=== PATIENT | female | born 1970 | race Caucasian/White ===

== ENCOUNTER 2020-05-19 01:07 | Day surgery (SDC) | payer BC, SELFPAY ==
[2020-05-12 15:10] VITALS: BMI 23.8
[2020-05-19 12:08] VITALS: BP 126/73; PULSE 100; RESP 19; TEMP 36.6; O2SAT 100; BMI 22.5
[2020-05-19] MEDS: LACTATED RINGERS 1,000 ML 150 ML IV CONT (12:15)
--- NOTE | 2020-05-19 12:28 | WPDANESEPPF ---
Anes - Initial Pre Proc Eval Procedure: Operation Date: 05/19/20 13:15 Proposed Procedures p Esophagogastroduodenoscopy And Screening Colonoscopy - Roberto Amaya MD Date/Time: 05/19/20 12:28 Surgeon: Roberto Amaya MD Pre Op Diagnosis: GERD, Dysphagia, Neoplasm Screening Patient Data Age: 49 Gender: F Height: 5 ft 2 in Weight: 55.8 kg Last Vital Signs Temp 97.9 F 05/19/20 12:08 Pulse 100 05/19/20 12:08 Resp 19 05/19/20 12:08 BP 126/73 05/19/20 12:08 Pulse Ox 100 05/19/20 12:08 Allergies Allergy/AdvReac Type Severity Reaction Status Date / Time Sulfa (Sulfonamide Allergy Severe Hives Verified 05/19/20 12:07 Antibiotics) codeine AdvReac Severe Migraine Verified 05/19/20 12:07 Home Medications Medication Instructions Recorded Confirmed Type albuterol sulfate 90 mcg/actuation 1 inhalation INHALATION Q4H PRN 03/10/19 05/19/20 History aerosol inhaler azelastine 137 mcg (0.1 %) nasal 137 mcg NASAL Q12H PRN 03/10/19 05/19/20 History spray aerosol topiramate 50 mg tablet 50 mg PO DAILY 04/25/20 05/19/20 History pantoprazole 40 mg tablet,delayed 40 mg PO QAM #30 tablet 04/26/20 05/19/20 Rx release benazepril 10 mg PO DAILY 05/15/20 05/19/20 History hydrochlorothiazide 12.5 mg PO DAILY 05/15/20 05/19/20 History metoprolol succinate 50 mg PO DAILY 05/15/20 05/19/20 History Patient hx anesthesia problems: none Family hx anesthesia problems: none PMFSH Past Medical History Medical History Anemia Asthma Hypertension Kidney stone ureteral stent ( right side) 03/12/19 Migraines Ureteral stone Surgical History Surgical History H/O sinus surgery History of removal of ovarian cyst Hx of cholecystectomy Hx of tonsillectomy S/P ureteral stent placement Family History Family History Father Family history of coronary artery disease No family history of hypertension Hypertension Family history of cardiovascular disease Malignant neoplasm of prostate Family history of malignant neoplasm of urinary bladder Mother Hypertension Grandparent Carcinoma of colon Other Family history of lung cancer Social History Social History Smoking status: Never smoker Second hand tobacco smoke exposure: No Alcohol intake: current Alcohol use details: WINE Substance use: never Substance use type: does not use Living arrangements: with family Additional occupation/education comments: Remote Spiritual care concerns: No Agree to blood products: Yes Anes - Eval Final PreProcedure Day of Procedure 05/19/20 12:28 Patient weight: normal Heart: regular rate and rhythm Lungs: clear to auscultation Airway: Mallampati scale class II Neurological: alert and oriented Last oral intake: >/= 8 hours ASA classification: II Emergent: no Anesthetic plan: proceed Anesthesia type and monitoring: general GIVS and standard monitoring Informed Consent: The patient's anesthetic plan and its attendant risks and benefits were discussed with the patient/family/POA. Questions were solicited and answers provided to the satisfaction of the patient/family/POA.
--- NOTE | 2020-05-19 13:22 | WPDHPUPDATE1 ---
History and Physical Update Update Date/Time: 05/19/20 13:22 History and Physical has been reviewed, including an updated exam of the patient. There are NO changes in the patient's condition. Risks, benefits, and alternatives have been discussed and questions answered. Patient agrees to proceed with procedure.
--- NOTE | 2020-05-19 13:54 | SUR.OPER ---
EGD START 1325, END 1332 COLONOSCOPY START 1338, END 1353
[2020-05-19 13:56] VITALS: BP 108/68; PULSE 79; RESP 25; O2SAT 99
[2020-05-19 14:06] VITALS: BP 109/72; PULSE 76; RESP 20; O2SAT 100
[2020-05-19 14:16] VITALS: BP 114/78; PULSE 78; RESP 23; O2SAT 99
== END 2020-05-19 14:33 | disposition home or self-care (01) ==
PROVIDERS: PCP Family Medicine; Visit Provider Internal Medicine Gastroenterology
PROC: 0DJ08ZZ Inspection of Upper Intestinal Tract, Via Natural or Artificial Opening Endoscopic (ICD-10-PCS; CPT 43235; principal; 2020-05-19 13:15)
DX: Z12.11 Encounter for screening for malignant neoplasm of colon (principal); K21.9 Gastro-esophageal reflux disease without esophagitis; R13.10 Dysphagia, unspecified; K30 Functional dyspepsia; K90.0 Celiac disease; K29.50 Unspecified chronic gastritis without bleeding; K64.8 Other hemorrhoids; Z79.51 Long term (current) use of inhaled steroids; D64.9 Anemia, unspecified; I10 Essential (primary) hypertension; J45.909 Unspecified asthma, uncomplicated; Z87.442 Personal history of urinary calculi
CPT/HCPCS: 43239; 45378; 88305; J2001; J2704; J7120

== ENCOUNTER 2020-09-27 09:20 | Outpatient (CLI) | payer BC, SELFPAY ==
--- NOTE | ~2020-09-27 | XR_ITS ---
EXAMINATION: XR abdomen/kub 1V DATE: 09/27/2020 09:39 INDICATION: Right ureteral stone. TECHNIQUE: A supine view of the abdomen on 2 radiographs was obtained. COMPARISON: Abdomen radiograph 04/13/2019, CT abdomen and pelvis 03/11/2019 FINDINGS: There are no dilated loops of bowel. Surgical clips in the right upper quadrant are likely from cholecystectomy. There is an intrauterine device in expected position. There is a 2 mm stone in left kidney. IMPRESSION: 1. 2 mm stone in left kidney. Reviewed, dictated and finalized at location A.
== END 2020-09-27 09:21 | disposition home or self-care (01) ==
LOC: ANHIMG 09:24
PROVIDERS: PCP Family Medicine; Visit Provider Urology
DX: N20.0 Calculus of kidney (principal)
CPT/HCPCS: 74018

== ENCOUNTER 2021-08-06 08:50 | Outpatient (CLI) | payer BC, SELFPAY ==
--- NOTE | ~2021-08-06 | MM_ITS ---
EXAMINATION: MM screening bailey BI w toro HISTORY: Screening mammogram TECHNIQUE: Craniocaudal and mediolateral oblique 3-D tomosynthesis images were obtained and synthetic 2-D images were generated. CAD analysis was submitted and interpreted. COMPARISON: 07/25/2017, 12/25/2013, 12/24/2012, 07/04/2011 bilateral screening mammogram examinations 12/21/2012 diagnostic left mammogram and left breast ultrasound BREAST PARENCHYMAL COMPOSITION: There are scattered areas of fibroglandular density. FINDINGS: There are 2 apparently new circumscribed approximately 4.7 mm contiguous nodules in the rig ht posterior axillary tail, not evident on previous mammograms. Diagnostic right mammogram and right breast ultrasound examination are recommended. Otherwise there is no evidence of suspicious mass, calcification, or architectural distortion to sugg est malignancy in either breast. There has been no is no other suspicious interval change. IMPRESSION: 1. 2 apparently new approximately 4.7 mm circumscribed masses in the posterior right axillary tail ar ea 2. Diagnostic right mammogram and right breast ultrasound examination are recommended BI-RADS Category 0: Incomplete: Needs additional imaging evaluation. Reviewed, dictated and finalized at location A. IMPRESSION: 1. 2 apparently new approximately 4.7 mm circumscribed masses in the posterior right axillary tail area 2. Diagnostic right mammogram and right breast ultrasound examination are recom mended BI-RADS Category 0: Incomplete: Needs additional imaging evaluation.
== END 2021-08-06 08:51 | disposition home or self-care (01) ==
LOC: ANHIMG 08:51
PROVIDERS: PCP Nurse Practitioner Family; Visit Provider Nurse Practitioner Family
DX: Z12.31 Encounter for screening mammogram for malignant neoplasm of breast (principal)
CPT/HCPCS: 77063; 77067

== ENCOUNTER 2021-08-10 12:16 | Outpatient (CLI) | payer BC, SELFPAY ==
--- NOTE | ~2021-08-10 | MMUS_ITS ---
EXAMINATION: MM diag bailey implant RT w toro, US breast RT limited HISTORY: 2 apparently new approximately 4.7 mm circumscribed masses in the posterior right axillary t ail area reported on 08/06/2021 screening mammogram TECHNIQUE: Additional 3-D tomosynthesis images of the right breast were performed and synthetic 2-D i mages were generated. Rotated lateral craniocaudal view. CAD analysis was submitted and interpreted. High resolution targeted right axillary tail breast ultrasound was performed by the technologist with subsequent scanning by Dr. Pappas as well. COMPARISON: 08/06/2021 bilateral screening mammogram Serial bilateral mammogram examinations dating back to 07/04/2011 FINDINGS: MAMMOGRAPHIC FINDINGS: 2 contiguous circumscribed oval approximately 4.7 mm opacities are again noted in the right axillary tail area. These are kidney shaped, suggestive of lymph nodes. Partially calcified fibroadenoma is noted in the upper outer quadrant. ULTRASOUND: No suspicious solid lesion or shadowing is detected. 11:00 8 cm from nipple: Shadowing from the calcified fibroadenoma is noted. 10:00 9 cm from nipple: 4.5 x 2.4 x 3.7 mm cyst. IMPRESSION: 1. Probable benign findings, right axillary tail 2. 6 month diagnostic right mammogram follow-up is recommended, with ultrasound if required BI-RADS category 3, probably benign findings. Reviewed, dictated and finalized at location A. IMPRESSION: 1. Probable benign findings, right axillary tail 2. 6 month diagnostic right mammogram follow-up is recommended, with ultrasound if required BI-RADS category 3, probably benign findings.
== END 2021-08-10 12:17 | disposition home or self-care (01) ==
PROVIDERS: PCP Nurse Practitioner Family; Visit Provider Nurse Practitioner Family
DX: R92.8 Other abnormal and inconclusive findings on diagnostic imaging of breast (principal)
CPT/HCPCS: 76642; 77061; 77065; G0279

== ENCOUNTER 2021-11-09 19:54 | Emergency (ER) | payer BC, SELFPAY ==
--- NOTE | ~2021-11-09 | XR_ITS ---
EXAMINATION: XR chest 2V DATE: 11/09/2021 21:03 INDICATION: Dizziness. Left-sided chest tightness and left shoulder pain. TECHNIQUE: PA and lateral views of the chest were obtained. COMPARISON: None FINDINGS: The lungs are clear with no focal airspace opacities, pulmonary edema, pleural effusion or pneumothor ax. The cardiomediastinal silhouette is normal. Visualized bones and soft tissues are unremarkable. P ost cystectomy clips in right upper quadrant. IMPRESSION: 1. No acute cardiopulmonary disease. Reviewed, dictated and finalized at location A.
--- NOTE | 2021-11-09 19:57 | ECG_ITS ---
Measurements Intervals [place] Rate: 71 P: 62 WA: 152 QRS: 46 QRSD: 84 T: 15 QT: 359 QTc: 391 Interpretive Statements SINUS RHYTHM WITHIN NORMAL LIMITS NO PREVIOUS ECG AVAILABLE FOR COMPARISON Electronically Signed On 11-10-2021 7:19:25 CDT by Feliz Childress M.D.
[2021-11-09 20:03] VITALS: BP 139/76; PULSE 76; RESP 16; TEMP 36.4; O2SAT 100
[2021-11-09 20:44] LABS: Basophils Percent Auto 0.1 % (0.2-1.2); Hemoglobin 12.9 g/dL (12.0-15.0); Immature Granulocyte Absolute 0.07 K/mm3 (0.00-0.031); Immature Granulocyte Percent A 0.5 % (0-0.5); Lymphocytes Absolute Auto 1.48 K/mm3 (0.9-3.2); Lymphocytes Percent Auto 10.7 % (18.3-44.2); Mean Corpuscular HGB Conc 32.3 g/dl (32-36); Mean Corpuscular Hemoglobin 29.1 pg (26-34); Mean Corpuscular Volume 90.1 fl (80-100); Mean Platelet Volume 10.2 fl (7.4-10.4); Monocytes Absolute Auto 0.6 K/mm3 (0.1-0.6); Monocytes Percent Auto 4.6 % (2.6-8.5); Neutrophils Absolute Auto 11.6 K/mm3 (1.3-6.7); Neutrophils Percent Auto 84.1 % (45.5-73.1); Platelet Count Result 498 k/mm3 (150-375); Red Blood Count 4.44 M/mm3 (4.2-5.4); Red Cell Distribution Width 13.2 % (11.5-14.5); White Blood Count 13.8 K/mm3 (4.5-10.0)
[2021-11-09 20:46] LABS: Prothrombin Time 12.5 Seconds (11.1-14.7)
[2021-11-09 20:47] LABS: Alanine Aminotransferase 23 U/L (6-35); Albumin Level 4.7 g/dL (3.5-5.1); Alkaline Phosphatase 79 U/L (38-126); Anion Gap 13 mmol/L (8-16); Aspartate Amino Transferase 29 U/L (14-36); Bilirubin,Total 0.2 mg/dL (0.2-1.3); Blood Urea Nitrogen 18 mg/dL (7-17); Calcium 9.5 mg/dL (8.4-10.2); Carbon Dioxide 22 mmol/L (22-30); Chloride 105 mmol/L (98-107); Estimated CRCL calculation 48 ml/min; Estimated Glomerular Filt Rate 59; Glucose 152 mg/dL (65-110); Lipase 133 U/L (23-300); Partial Thromboplastin Time 25.8 SECONDS (22.3-36.8); Potassium 3.7 mmol/L (3.4-5.0); Sodium 140 mmol/L (137-145)
[2021-11-09 20:55] LABS: Troponin I < 0.012 ng/mL (0.000-0.034)
[2021-11-09 21:04] LABS: Appearance Urine Clear (Clear); Bilirubin Urine Negative (Negative); Glucose Urine UA Negative (Negative); Ketones Urine Negative (Negative); Leukocyte Esterase Ur Negative LEU/UL (Negative); Nitrate Urine Negative (Negative); Protein Urine Negative (Negative); Urobilinogen Urine 0.2 mg/dL (<2.0)
[2021-11-09 21:05] LABS: Add Urine Microscopic? YES; Blood Urine Trace-Intact (Negative); Color Urine Light Yellow (Yellow)
[2021-11-09 21:06] VITALS: BP 134/78; PULSE 67; RESP 17; TEMP 36.8; O2SAT 100
[2021-11-09 21:10] LABS: RBC Urine 0-2 /hpf (0-2); WBC Urine 0-3 /hpf
[2021-11-09] MEDS: ASPIRIN 81 MG CHEWABLE TABLET 324 MG PO (21:12)
[2021-11-09 22:00] VITALS: BP 114/73; PULSE 67; RESP 15; O2SAT 99
[2021-11-09 22:15] VITALS: BP 112/76; PULSE 67; RESP 17; O2SAT 99
[2021-11-09 22:30] VITALS: BP 111/70; PULSE 69; RESP 14; O2SAT 98
[2021-11-09 22:45] VITALS: BP 110/75; PULSE 73; RESP 17; O2SAT 98
[2021-11-09 23:43] LABS: Troponin I < 0.012 ng/mL (0.000-0.034)
--- NOTE | 2021-11-10 00:09 | ED.GENADULT ---
HPI - General Adult General Chief complaint: Chest Pain Stated complaint: chest pain, dizziness Time Seen by Provider: 11/09/21 21:37 History of Present Illness HPI narrative: This is a 50-year-old female presenting the ED with a frontal headache. Patient has been having sinus pain for the last 2 weeks. It is consistent with a frontal headache and pressure behind her eyes. She was seen by her primary care physician who recently prescribed her antibiotics. She has not been taking decongestants and has just been using a Neti pot. The patient is coming in today because she felt a twingy chest pain at approximately noon. It is nonradiating. 2-3 intensity. Comes and goes. She has never experienced this before there were no exacerbating or alleviating symptoms. It is not associated with exertion, diaphoresis, vomiting. Related Data Home Medications Medication Instructions Recorded Confirmed albuterol sulfate 90 mcg/actuation 1 inhalation inhalation Q4H PRN 03/10/19 05/19/20 aerosol inhaler (ProAir HFA) Allergy Symptoms topiramate 50 mg tablet (Topamax) 50 mg PO DAILY 04/25/20 05/19/20 metoprolol succinate 50 mg 50 mg PO DAILY 05/15/20 05/19/20 tablet,extended release 24 hr amoxicillin 875 mg-potassium tablet 11/09/21 11/09/21 clavulanate 125 mg tablet fluticasone propionate 50 intranasal 11/09/21 mcg/actuation nasal spray,suspension prednisone 20 mg tablet mg 11/09/21 Allergies Allergy/AdvReac Type Severity Reaction Status Date / Time Sulfa (Sulfonamide Allergy Severe Hives Verified 11/09/21 21:08 Antibiotics) codeine AdvReac Severe Migraine Verified 11/09/21 21:08 Review of Systems Review of Systems: CONSTITUTIONAL: Denies night sweats. EYES: No eye pain ENT: Denies rhinorrhea CARDIOVASCULAR: Denies palpitations RESPIRATORY: Denies hemoptysis GASTROINTESTINAL: Denies hematemesis GENITOURINARY: Denies hematuria. SKIN: Denies rash MUSCULOSKELETAL: Denies myalgia. NEUROLOGIC: Denies weakness. PSYCHIATRIC: Denies delusions PMFSH Past Medical History Medical History Abnormal virtual colonoscope internal hemorrhoids Anemia Asthma Hypertension Kidney stone ureteral stent ( right side) 03/12/19 Migraines Ureteral stone Surgical History Surgical History H/O sinus surgery History of removal of ovarian cyst Hx of cholecystectomy Hx of tonsillectomy S/P ureteral stent placement Family History Family History Father Family history of coronary artery disease No family history of hypertension Hypertension Family history of cardiovascular disease Malignant neoplasm of prostate Family history of malignant neoplasm of urinary bladder Mother Hypertension Grandparent Carcinoma of colon Other Family history of lung cancer Social History Social History Smoking status: Never smoker Second hand tobacco smoke exposure: No Alcohol intake: current Alcohol use details: WINE Substance use: never Substance use type: does not use Additional occupation/education comments: Remote Spiritual care concerns: No Agree to blood products: Yes Exam Narrative: APPEARANCE: No apparent distress. Head atraumatic. Tenderness to palpation over the frontal sinuses. EYES: PERRLA/EOMI, NOSE: Normal no drainage NECK: Supple, Trachea midline RESPIRATORY: CTAB, No increased work of breathing. CARDIOVASCULAR: S1S2 appreciated ABDOMINAL: Soft, nontender, nondistended, MUSCULOSKELETAl: No obvious deformities NEURO: Alert. Moving 4/4 extremities SKIN:: Warm, dry. Normal color PSYCHIATRIC: Normal affect Course Vital Signs Vital signs: Vital Signs Temperature 97.6 F 11/09/21 20:03 Pulse Rate 76 11/09/21 20:03 Respiratory Rate 16 11/09/21 20:03 Bloo
[2021-11-10 00:49] VITALS: BP 107/73; PULSE 85; RESP 15; O2SAT 100
== END 2021-11-10 00:51 | disposition home or self-care (01) ==
PROVIDERS: Emergency Provider Emergency Medicine; PCP Nurse Practitioner Family
DX: J32.9 Chronic sinusitis, unspecified (principal); R07.9 Chest pain, unspecified; I10 Essential (primary) hypertension; J45.909 Unspecified asthma, uncomplicated; Z87.442 Personal history of urinary calculi; Z86.2 Personal history of diseases of the blood and blood-forming organs and certain disorders involving the immune mechanism; Z96.0 Presence of urogenital implants
CPT/HCPCS: 36415; 71046; 80053; 81001; 81025; 83690; 84484; 85025; 85610; 85730; 93005; 99284; A9270

== ENCOUNTER 2022-01-29 13:46 | Outpatient (CLI) | payer BC, SELFPAY ==
--- NOTE | ~2022-01-29 | MMUS_ITS ---
EXAMINATION: MM diagnostic bailey RT w toro, US breast RT limited HISTORY: Six-month follow-up for probably benign right breast masses TECHNIQUE: Craniocaudal, mediolateral, and mediolateral oblique 3-D tomosynthesis images of the breas ts were performed and synthetic 2-D images were generated. CAD analysis was submitted and interpreted . High resolution limited right breast ultrasound was performed. COMPARISON: 08/10/2021, 08/06/2021, 07/28/2017, 02/02/2014, 12/14/2012 BREAST PARENCHYMAL COMPOSITION: There are scattered areas of fibroglandular density. FINDINGS: MAMMOGRAPHIC FINDINGS: There is a stable mass in the far posterior third of the outer breast near the region of the axilla w hich appears to reflect a small mass with a central fatty component, most consistent with a lymph nod e. There has been no suspicious interval change. ULTRASOUND: There is no evidence of suspicious solid or cystic mass in the vicinity of the mammographic finding i n question. IMPRESSION: 1. Right breast mass with mammographic features most consistent with a lymph node. 2. Recommend routine screening mammography, due in six months. BI-RADS Category 2: Benign finding(s). Reviewed, dictated and finalized at location A. IMPRESSION: 1. Right breast mass with mammographic features most consistent with a lymph no de. 2. Recommend routine screening mammography, due in six months. BI-RADS Category 2: Benign finding(s).
== END 2022-01-29 13:47 | disposition home or self-care (01) ==
PROVIDERS: PCP Nurse Practitioner Family; Visit Provider Nurse Practitioner Family
DX: R92.8 Other abnormal and inconclusive findings on diagnostic imaging of breast (principal)
CPT/HCPCS: 76642; 77061; 77065; G0279

== ENCOUNTER 2022-12-31 07:19 | Outpatient (CLI) | payer BC, SELFPAY ==
--- NOTE | ~2022-12-31 | MM_ITS ---
EXAMINATION: MM screening bailey BI w toro HISTORY: Screening mammogram TECHNIQUE: Craniocaudal and mediolateral oblique 3-D tomosynthesis images were obtained and synthetic 2-D images were generated. CAD analysis was submitted and interpreted. COMPARISON: 01/29/2022 diagnostic right mammogram and limited right breast ultrasound 08/10/2021 diagnostic right mammogram and limited right breast ultrasound 08/06/2021 and 07/28/2017 bilateral screening mammogram examinations BREAST PARENCHYMAL COMPOSITION: There are scattered areas of fibroglandular density. FINDINGS: There is no evidence of suspicious mass, calcification, or architectural distortion to sugg est malignancy in either breast. There has been no suspicious interval change. IMPRESSION: 1. No mammographic evidence of malignancy. 2. Recommend routine screening mammography in one year. BI-RADS Category 1: Negative Reviewed, dictated and finalized at location A.
== END 2022-12-31 07:20 | disposition home or self-care (01) ==
PROVIDERS: PCP Nurse Practitioner Family; Visit Provider Nurse Practitioner Family
DX: Z12.31 Encounter for screening mammogram for malignant neoplasm of breast (principal); R92.8 Other abnormal and inconclusive findings on diagnostic imaging of breast
CPT/HCPCS: 77063; 77067

== ENCOUNTER 2024-04-23 09:59 | Outpatient (CLI) | payer BC, SELFPAY ==
--- NOTE | ~2024-04-23 | MM_ITS ---
EXAMINATION: MM screening bailey BI w toro HISTORY: Screening TECHNIQUE: Craniocaudal and mediolateral oblique 3-D tomosynthesis images were obtained and synthetic 2-D images were generated. CAD analysis was submitted and interpreted. COMPARISON: Comparison to multiple prior studies sequentially, with oldest reviewed study dated 07/28. BREAST PARENCHYMAL COMPOSITION: Not dense: There are scattered areas of fibroglandular density. FINDINGS: There is no evidence of suspicious mass, calcification, or architectural distortion to sugg est malignancy in either breast. There has been no suspicious interval change. IMPRESSION: 1. No mammographic evidence of malignancy. 2. Recommend routine screening mammography in one year. BI-RADS Category 1: Negative Reviewed, dictated and finalized at location A. TERIA MONITOR
--- OUTSIDE RECORDS SUMMARY | 2024-04-29 06:14 | XMS_ITS | Referral Summary ---
Author Organization [facility] Address [address] [place] [address] Care Team Providers Care Locator Specialist Name Role Phone Pippa Sampson MD Primary Care Provider [phone] Source Comments [facility],non-owned Affiliates and Associated Physician Practices is amultiple site organization consisting of ambulatory clinics and hospital sitesin [place], [place], [place] and [place]. This disclosure is being madepursuant to the Care Everywhere program and may not contain all information available regarding this patient. Last updated 17.[facility] Social History Tobacco Use Types Packs/Day Years Used Date Smoking Tobacco: Never Assessed Sex and Gender Information Value Date Recorded Sex Assigned at Not on file Gender Identity Not on file Sexual Orientation Not on file Plan of Treatment Not on file Care Teams Locator Specialist Relationship Specialty Start Date End Date Pippa Sampson MD [address] [place] [id number] PCP - General 04/22/19
--- OUTSIDE RECORDS SUMMARY | 2024-04-29 06:14 | XMS_ITS | Clinical Summary ---
Author Organization [facility] Address [address] [place] [address]. [place], [place] [address] [place] [address] Care Team Providers Care Cytopathology Technologist Name Role Phone ShipmanMorenita Ryley POSADAS Primary Care Provider +1- [phone] Allergies Active Allergy Reactions Criticality Noted Date Comments Codeine Headache 07/05/2021 Sulfa Antibiotics Rash Low 04/26/2021 Medications azelastine (ASTELIN) 0.1 % nasal sprayIndications:N fred polyps 1-2 sprays per nostril, once or twice daily. 30 mL 2 3 Active SYMBICORT 80-4.5 MCG/ACT inhalerIndications :Dysfunction of both eustachian tubes,Seasonal allergies INHALE 2 PUFFS BY MOUTH EVERY 12 HOURS Strength: 80-4.5 MCG/ACT 10.2 g 3 3 Active albuterol sulfate HFA 108 (90 Base) MCG/ACT inhalerIndications :Seasonal allergies Inhale 2 puffs into the lungs every 6 (six) hours as needed for Wheezing or Shortness of breath. 18 g 3 Active Andover-3 Fatty Acids (FISH OIL) 1200 MG CapIndications:Hig h triglycerides,Hype rtriglyceridemia Take 1,200 mg by mouth daily. 90 capsule 3 Active SUMAtriptan (IMITREX) 50 MG tabletIndications: Migraine with aura and without status migrainosus, not intractable Take 1 tablet (50 mg total) by mouth 2 (two) times daily as needed for Migraine. Max of 4 tablets (200 mg) in 24 hours. 30 tablet 1 3 Active atorvastatin (LIPITOR) 20 MG tabletIndications: Hypertriglyceridem ia,Dyslipidemia Take 1 tablet (20 mg total) by mouth nightly at bedtime. 90 tablet 3 4 Active fluticasone propionate (FLONASE) 50 MCG/ACT nasal spray Active levocetirizine (XYZAL) 5 MG tabletIndications: Nasal polyps TAKE 1 TABLET(5 MG) BY MOUTH DAILY 90 tablet 1 4 Active topiramate (TOPAMAX) 50 MG TabIndications:Gene verónica with aura and without status migrainosus, not intractable Take 1 tablet (50 mg total) by mouth daily. 90 tablet 3 4 Active metoprolol succinate ER (TOPROL-XL) 50 MG 24 hr tabletIndications: Essential hypertension Take 1 tablet (50 mg total) by mouth daily. 90 tablet 3 4 Active hydroCHLOROthiazid e (MICROZIDE) 12.5 MG capsuleIndications :Essential hypertension Take 1 capsule (12.5 mg total) by mouth daily. 90 capsule 1 4 Active benazepril (LOTENSIN) 10 MG tabletIndications: Essential hypertension Take 1 tablet (10 mg total) by mouth daily. 90 tablet 1 4 Active montelukast (SINGULAIR) 10 MG tabletIndications: Acute recurrent frontal sinusitis,Nasal polyps,Seasonal allergies Take 1 tablet (10 mg total) by mouth nightly at bedtime. 90 tablet 4 Active fenofibrate 160 MG tabletIndications: High triglycerides Take 1 tablet (160 mg total) by mouth daily. 90 tablet 4 Active Active Problems Problem Noted Date Diagnosed Date Lipoma of torso 08/08/2023 Hypertriglyceridemia 03/10/2023 Dyslipidemia 11/18/2022 Essential hypertension 10/24/2021 Heartburn 10/24/2021 Acute recurrent frontal sinusitis 05/07/2021 Resolved Problems Problem Noted Date Diagnosed Date Resolved Date Melanoma ([facility]) 12/09/2022 1 05/11/2022 Encounters Date Type Department Care Team Description 04/23/2024 Scan VeliQ SRVCS Scanned, Doc [facility] Mammogram (SCAN) 03/15/2024 Scan HEALTH [employer] SRVCS Scanned, Doc Med Group 02/11/2024 Scan MG HEALTH INFO SRVCS Scanned, Doc Med Group from Last 3 Months Immunizations Name Administration Dates Next Due Hepatitis A (Havrix 1440 [address].U) 08/06/2018,2017 Influenza (Generic) 02/28/2017 Influenza Adult (Generic) 01/08/2023,,12/28/2020, 020,01/06/2019,01/10/2018 [employer] ([employer]) COVID-19 AD26 VACCINE 0.5 ML IM SUSP 06/15/2020 MMR (MMRII) 08/06/2018 PFIZER COVID-19 (LOWRY CAP), MRNA, LNP-S, PF, 30 MCG/0.3 ML ROCK-SUCROSE, IM 08/16/2021 PFIZER COVID-19 (ORIGINAL FORMULATION, PURPLE CAP) mRNA, LNP-S, PF, 30 MCG/0.3 ML DOSE 02/25/2021 Shingrix 01/29/2023,2022 Tdap (Generic) 07/15/2017 Family History Medical History Relation Comments Cancer Father Heart Disease Father Hypertension Father bladder cancer Father prostate cancer Father Hypertension Mother Relation Status Comments Father Alive Mother Alive Social History Tobacco Use Types Packs/Day Years Used Date Smoking Tobacco: Never Smokeless Tobacco: Never Tobacco Cessation:Counseling Given: Not Answered Comments:non smoker Alcohol Use Standard Drinks/Week Comments Not Currently 0 (1 standard drink = 0.6 oz pur e alcohol) 1-3 monthly PHQ-2 Answer Date Recorded Patient Health Questionnaire-2 Score 0 04/17/2023 Comments No Sex and Gender Information Value Date Recorded Sex Assigned at Not on file Legal Sex Female 9:56 AM MAINTAINABILITY ENGINEER Gender Identity Not on file Sexual Orientation Not on file Last Filed Vital Signs Vital Sign Reading Time Taken Comments Blood Pressure 117/68 11/10/2023 7:58 AM CDT Pulse 69 11/10/2023 7:58 AM CDT Temperature 37.1 ??C (98.8 ??F) 11/10/2023 7:58 AM CD T Respiratory Rate 18 11/10/2023 7:58 AM CDT Oxygen Saturation 99% 11/10/2023 7:58 AM CDT Inhaled Oxygen Concentration - - Weight 68.9 kg (152 lb) 11/10/2023 7:58 AM CDT Height 157.5 cm (5' 2 ) 11/10/2023 7:58 AM CDT Body Mass Index 27.8 11/10/2023 7:58 AM CDT Plan of Treatment Upcoming Encounters Date Type Department Care Team (Late st Contact Info) Description 05/10/2024 7:40 AM MAINTAINABILITY ENGINEER Office Visit [facility] Family & Internal Medicine [facility] [address] [place] [address] Morenita Shipman, PROPERTY MANAGEMENT ACCOUNTANT [address] [facility] [address] [place] [address] Health Maintenance Due Date Last Done Comments Cervical Cancer Screening Pap Smear (Age 30 to 64) Every 3 Years 1971 Hepatitis C 11/18/1989 Hepatitis B Vaccines (1 of 3 - 19+ 3-dose series) 11/18/1990 COVID-19 Vaccine ( season) 2023 12/31/2021, 08/16/2021, 02/25/2021, Additional history exists Influenza Adult (#1) 2024 01/08/2023, 12/31/2021, 12/28/2020, Additional history exists PHQ-2 (Physician Kiana) 04/17/2024 04/17/2023 Annual Physical 11/09/2024 11/10/2023, 11/05, 04/26/2021 Mammogram Screening 04/23/2025 04/23/2024, 12/31/2022, 12/31/2022, Additional history exists DTaP, Tdap and Td Vaccines (2 - Td or Tdap) 07/16/2027 07/15/2017 Cervical Cancer Screening Pap with HPV Testing (Age 30 to 64) Every 5 Years 01/08/2028 01/07/2023 Cervical Cancer Screening with HPV 01/08/2028 Colorectal Cancer Screening Colonoscopy (10 Years) 05/19/2030 05/19/2020 Zoster Vaccines Completed 01/29/2023, 2022 Meningococcal B Vaccine Aged Out No l onger eligible based on patient's age to complete this topic Meningococcal Vaccine Aged Out No tiago rolando eligible based on patient's age to complete this topic Pneumococcal Vaccine: Pediatrics (0 to 5 Years) and At-Risk Patients (6 to 64 Years) Aged Out No longer eligible based on patient's age to complete this topic RSV Immunizations Under 20 Months Aged Out No longer eligible based on patient's age to complete this topic Procedures Procedure Name Priority Date/Time Associated Diagnosis Comments MAMMOGRAM GENERIC (SCAN ORDER) 04/23/2024 OUTSIDE CYTOPATH CERV/VAG IN TERPRET (PAP) 01/07/2023 COLONOSCOPY GENERIC (SCAN ORDER) 05/19/2020 from Last 3 Months or Most Recently Relevant to Health Maintenance Results * MAMMOGRAM GENERIC (SCAN ORDER) (04/23/2024) Anatomical Region Laterality Modality Other 04/23/2024 [facility] Scanned SCANNING Final Resu lt * PAP SMEAR WITH HPV (01/07/2023) 01/07/2023 [facility] Scanned SCANNING Final Resu lt * COLONOSCOPY GENERIC (05/19/2020) 05/19/2020 [facility] Scanned SCANNING Final Resu lt from Last 3 Months or Most Recently Relevant to Health Maintenance Insurance Care Teams Cytopathology Technologist Relationship Specialty Start Date End Date Morenita Shipman APRN [address] [place] [address] PCP - General NURSE PRACTITIONER 03/05/23
--- OUTSIDE RECORDS SUMMARY | 2024-04-29 06:14 | XMS_ITS | Encounter Summary ---
Author Organization [facility] Address [address] [place] [address]. [place], [place] [address] [place] [address] Care Team Providers Care Door Frame Builder Name Role Phone Morenita Shipman APRN Primary Care Provider +1- [phone] Encounter Details Date Type Department Care Team (Late st Contact Info) Description 12/11/2023 Live[employer] Message Enc [facility] Medical Group Family & Internal Medicine [facility] [address] [place] [address] Morenita Shipman APRN [id number] [address] Past Bloodwork Social History Tobacco Use Types Packs/Day Years Used Date Smoking Tobacco: Never Smokeless Tobacco: Never Comments:non smoker Alcohol Use Standard Drinks/Week Comments Not Currently 0 (1 standard drink = 0.6 oz pur e alcohol) 1-3 monthly PHQ-2 Answer Date Recorded Patient Health Questionnaire-2 Score 0 04/17/2023 Comments No Sex and Gender Information Value Date Recorded Sex Assigned at Not on file Legal Sex Female 9:56 AM RETAIL SALES PROFESSIONAL Gender Identity Not on file Sexual Orientation Not on file documented as of this encounter Progress Notes * Rivka Walters MA - 12/12/2023 9:55 AM CDT Please advise documented in this encounter Plan of Treatment Upcoming Encounters Date Type Department Care Team (Late st Contact Info) Description 05/10/2024 7:40 AM RETAIL SALES PROFESSIONAL Office Visit [facility] Medical Group Family & Internal Medicine - [place] [address] [place] [address] Morenita Shipman APRN [id number] [facility] [address] [place] [address] documented as of this encounter Visit Diagnoses Not on filedocumented in this encounter Additional Health Concerns Assessment Noted Time PHQ-9 Depression Total Score: 4 11/09/19 22 7:19 AM CDT documented as of this encounter Care Teams Door Frame Builder Relationship Specialty Start Date End Date Morenita Shipman APRN [id number] [address] PCP - General NURSE PRACTITIONER 03/05/23 documented as of this encounter
--- OUTSIDE RECORDS SUMMARY | 2024-04-29 06:14 | XMS_ITS | Encounter Summary ---
Author Organization [facility] Address [address] [place] [address]. [place], [place] [address] [place] [address] Care Team Providers Care Terminal Carman Name Role Phone Carmen Chaudhari [facility] Primary Care Provider + Morenita Shipman APRN Primary Care Provider +1- [phone] Encounter Details Date Type Department Care Team ([facility] Contact Info) Description 07/30/2022 [employer] Message Enc [facility] Family & Internal Medicine [facility] [address] [place] [address] [facility] Provider medication refill/follow up appointment Social History Tobacco Use Types Packs/Day Years Used Date Smoking Tobacco: Never Smokeless Tobacco: Never Comments:non smoker Alcohol Use Standard Drinks/Week Comments Yes 0 (1 standard drink = 0.6 oz pur e alcohol) occ PHQ-2 Answer Date Recorded Patient Health Questionnaire-2 Score 0 06/28/2022 Comments No Sex and Gender Information Value Date Recorded Sex Assigned at Not on file Legal Sex Female 9:56 AM BUSINESS PROPOSAL REP Gender Identity Not on file Sexual Orientation Not on file documented as of this encounter Plan of Treatment Upcoming Encounters Date Type Department Care Team (Late Contact Info) Description 05/10/2024 7:40 AM BUSINESS PROPOSAL REP Office Visit [facility] Family & Internal [facility] [address] [place] [address] Morenita Shipman APRN [address] [facility] [address] [place] [address] documented as of this encounter Visit Diagnoses Not on filedocumented in this encounter Additional Health Concerns Assessment Noted Time PHQ-9 Depression Total Score: 4 11/09/19 22 7:19 AM CDT documented as of this encounter Care Teams Terminal Carman Relationship Specialty Start Date End Date [facility] PCP - General Nurse Practitioner Family 03/08/21 Morenita Shipman APRN [id number] [address] PCP - General NURSE PRACTITIONER 03/05/23 documented as of this encounter
--- OUTSIDE RECORDS SUMMARY | 2024-04-29 06:14 | XMS_ITS | Encounter Summary ---
Author Organization [facility] Address [address] [place] [address]. [place], [place] [address] [place] [address] Care Team Providers Care Otr Owner Operator Truck Driver Name Role Phone Morenita Shipman APRN Primary Care Provider +1- [phone] Encounter Details Date Type Department Care Team (Late st Contact Info) Description 04/29/2023 Geo[employer] Message Enc [facility] Family & Internal Medicine [address] [address] Morenita Shipman APRN [address] [facility] [address] [place] [address] Ultrasound Question Social History Tobacco Use Types Packs/Day Years [...] on file Legal Sex Female 9:56 AM LICENSED OPTICIAN Gender Identity Not on file Sexual Orientation Not on file documented as of this encounter Plan of Treatment Upcoming Encounters Date Type Department Care Team (Late st Contact Info) Description 05/10/2024 7:40 AM LICENSED OPTICIAN Office Visit [facility] Family & Internal Medicine [facility] [address] [place] [address] Morenita Shipman APRN [id number] [address] [address] [place] [address] documented as of this encounter Visit Diagnoses Not on filedocumented in this encounter Additional Health Concerns Assessment Noted Time PHQ-9 Depression Total Score: 4 11/09/19 22 7:19 AM CDT documented as of this encounter Care Teams Otr Owner Operator Truck Driver Relationship Specialty Start Date End Date Morenita Shipman APRN [address] [facility] [address] [place] [address] PCP - General NURSE PRACTITIONER 03/05/23 documented as of this encounter
--- OUTSIDE RECORDS SUMMARY | 2024-04-29 06:14 | XMS_ITS | Encounter Summary ---
Author Organization [facility] Address [address] [place] [address]. [place], [place] [address] [place] [address] Care Team Providers Care Putty Worker Name Role Phone Carmen Chaudhari [facility] Primary Care Provider + Morenita Shipman APRN Primary Care Provider +1- [phone] Encounter Details Date Type Department Care Team (Late Contact Info) Description 03/13/2022 ItrybeforeIbuy Message Enc [facility] Family & Internal Medicine [address] [address] [facility] Provider Reschedule appt on 03/14 Social History Tobacco Use Types Packs/Day Years Used Date Smoking Tobacco: Never Smokeless Tobacco: Never Comments:non smoker Alcohol Use Standard Drinks/Week Comments Yes 0 (1 standard drink = 0.6 oz pur e alcohol) occ PHQ-2 Answer Date Recorded PHQ-2 Score - If the patient scores above 3, please move on to questions 3-9 0 11/08/2021 Comments No Sex and Gender Information Value Date Recorded Sex Assigned at Not on file Legal Sex Female 9:56 AM AIR CONDITIONING EQUIPMENT MECHANIC Gender Identity Not on file Sexual Orientation Not on file documented as of this encounter Plan of Treatment Upcoming Encounters Date Type Department Care Team (Late Contact Info) Description 05/10/2024 7:40 AM AIR CONDITIONING EQUIPMENT MECHANIC Office Visit [facility] Family & Internal [address] [address] Morenita Shipman APRN [address] [place] [address] [place] [address] documented as of this encounter Visit Diagnoses Not on filedocumented in this encounter Additional Health Concerns Infection Onset Date Last Indicated Resolved Time COVID-19 Rule Out 03/19/2022 03/19/2022 03/19/2022 9:53 AM AIR CONDITIONING EQUIPMENT MECHANIC COVID-19 Rule Out 03/19/2022 03/19/2022 03/20/2022 8:01 PM AIR CONDITIONING EQUIPMENT MECHANIC COVID-19 Rule Out 06/28/2022 06/28/2022 06/28/2022 8:23 AM CDT Assessment Noted Time PHQ-9 Depression Total Score: 4 11/09/19 22 7:19 AM CDT documented as of this encounter Care Teams Putty Worker Relationship Specialty Start Date End Date [facility] PCP - General Nurse Practitioner Family 03/08/21 Morenita Shipman APRN [id number] [address] PCP - General NURSE PRACTITIONER 03/05/23 documented as of this encounter
--- OUTSIDE RECORDS SUMMARY | 2024-04-29 06:14 | XMS_ITS | Encounter Summary ---
Author Organization [facility] Address [address] [place] [address]. [place], [place] [address] [place] [address] Care Team Providers Care Transportation Program Director Name Role Phone Carmen Chaudhari [facility] Primary Care Provider + Morenita Shipman APRN Primary Care Provider +1- [phone] Encounter Details Date Type Department Care Team (Late Contact Info) Description 11/05/2022 HAKIM Information Technology[employer] Message Enc [facility] Family & Internal Medicine [facility] [address] [place] [address] Morenita Shipman APRN [address] [facility] [address] [place] [address] Move to you as our provider Social History Tobacco Use Types Packs/Day Years [...] on file Legal Sex Female 9:56 AM ENGRAVER ORNAMENTAL DESIGN Gender Identity Not on file Sexual Orientation Not on file documented as of this encounter Plan of Treatment Upcoming Encounters Date Type Department Care Team (Late st Contact Info) Description 05/10/2024 7:40 AM ENGRAVER ORNAMENTAL DESIGN Office Visit [facility] Family & Internal Medicine [facility] [address] [place] [address] Morenita Shipman APRN [address] [place] [address] documented as of this encounter Visit Diagnoses Not on filedocumented in this encounter Additional Health Concerns Assessment Noted Time PHQ-9 Depression Total Score: 4 11/09/19 22 7:19 AM CDT documented as of this encounter Care Teams Transportation Program Director Relationship Specialty Start Date End Date [facility] PCP - General Nurse Practitioner Family 03/08/21 Morenita Shipman APRN [address] [place] [address] PCP - General NURSE PRACTITIONER 03/05/23 documented as of this encounter
--- OUTSIDE RECORDS SUMMARY | 2024-04-29 06:14 | XMS_ITS | Encounter Summary ---
Author Organization [facility] Address [address] [place] [address]. [place], [place] [address] [place] [address] Care Team Providers Care Automotive Parts Coordinator Name Role Phone Carmen Chaudhari [facility] Primary Care Provider + Morenita Shipman APRN Primary Care Provider +1- [phone] Encounter Details Date Type Department Care Team (Late Contact Info) Description 03/18/2022 ClassBadges Message Enc [facility] Medical Group Family & Internal Medicine [address] [address] [facility] [address] [place] [address] Flu Medication Social History Tobacco Use Types Packs/Day Years [...] on file Legal Sex Female 9:56 AM VENUE ATTENDANT Gender Identity Not on file Sexual Orientation Not on file COVID-19 Exposure Response Date Recorded In the last 10 days, have yo u been in contact with someone who was confirmed or suspected to have Coronavirus/COVID-19? No / Unsure 03/19/2022 9:12 AM VENUE ATTENDANT documented as of this encounter Plan of Treatment Upcoming Encounters Date Type Department Care Team (Late Contact Info) Description 05/10/2024 7:40 AM VENUE ATTENDANT Office Visit [facility] Medical Group Family & Internal Medicine [facility] [address] [place] [address] Morenita Shipman APRN [address] [facility] [address] [place] [address] documented as of this encounter Visit Diagnoses Not on filedocumented in this encounter Additional Health Concerns Infection Onset Date Last Indicated Resolved Time COVID-19 Rule Out 03/19/2022 03/19/2022 03/19/2022 9:53 AM VENUE ATTENDANT COVID-19 Rule Out 03/19/2022 03/19/2022 03/20/2022 8:01 PM VENUE ATTENDANT COVID-19 Rule Out 06/28/2022 06/28/2022 06/28/2022 8:23 AM CDT Assessment Noted Time PHQ-9 Depression Total Score: 4 11/09/19 7:19 AM CDT documented as of this encounter Care Teams Automotive Parts Coordinator Relationship Specialty Start Date End Date Carmen Chaudhari FNP- PCP - General Nurse Practitioner Family 03/08/21 Morenita Shipman APRN [id number] [address] PCP - General NURSE PRACTITIONER 03/05/23 documented as of this encounter
--- OUTSIDE RECORDS SUMMARY | 2024-04-29 06:14 | XMS_ITS | Clinical Summary ---
Author Organization [facility] Address [address] [place] [address] Care Team Providers Care Jinriksha Driver Name Role Phone Pippa Sampson MD Primary Care Provider +1 -[phone] Source Comments [facility] [employer],non-owned Affiliates and Associated Physician Practices is amultiple site organization consisting of ambulatory clinics and hospital sitesin [place], [place], [place] and [place]. This disclosure is being madepursuant to the Care Everywhere program and may not contain all information available regarding this patient. Last updated 17.[facility] [employer] Social History Tobacco Use Types Packs/Day Years Used Date Smoking Tobacco: Never Assessed Sex and Gender Information Value Date Recorded Sex Assigned at Not on file Gender Identity Not on file Sexual Orientation Not on file Plan of Treatment Health Maintenance Due Date Last Done Comments COLOGUARD (AGES 45-75) - COL ON CA SCREENING 1971 COLON MONITORING 1971 COLONOSCOPY - COLON CA SCREENING 1971 CT COLONOGRAPHY - COLON CA SCREENING 1971 Colorectal Cancer Screening 1971 FIT - COLON CA SCREENING 1971 FLEX SIG - COLON CA SCREENING 1971 LIPID TESTING 1971 MAMMOGRAM 1971 PAP SMEAR 1971 HIV SCREENING 11/18/1986 HEPATITIS C SCREENING 11/14/1989 DTAP/TDAP/TD VACCINES (1 - Tdap) 11/18/1990 HEPATITIS B VACCINE (1 of 3 - 19+ 3-dose series) 11/18/1990 PNEUMOCOCCAL VACCINE 50+ (1 of 1 - PCV) 11/18/2021 ZOSTER VACCINE (1 of 2) 11/18/2021 COVID-19 VACCINE (1 - 2023-2 5 season) 2023 INFLUENZA VACCINE (#1) 2023 DEPRESSION SCREENING 04/07/2024 HIB VACCINE Aged Out No longer eligi ble based on patient's age to complete this topic HPV VACCINE Aged Out No longer eligi ble based on patient's age to complete this topic MENINGOCOCCAL (Group B) VACCINE Aged Out No longer eligible based on patient's age to complete this topic MENINGOCOCCAL VACCINE Aged Out No tiago rolando eligible based on patient's age to complete this topic PNEUMOCOCCAL VACCINE Aged Out No long er eligible based on patient's age to complete this topic Care Teams Jinriksha Driver Relationship Specialty Start Date End Date Pippa Sampson MD [address] [place] [address] PCP - General 04/22/19
--- OUTSIDE RECORDS SUMMARY | 2024-04-29 06:14 | XMS_ITS | Patient Health Summary ---
Author Organization [facility] Address [address] [place] [address] Care Team Providers Care Clutch Specialist Name Role Phone Pippa Sampson MD Primary Care Provider [phone] [phone] Note from [facility],non-owned Affiliates and Associated Physician Practices is amultiple site organization consisting of ambulatory clinics and hospital sitesin [place], [place], [place] and [place]. This disclosure is being madepursuant to the Care Everywhere program and may not contain all information available regarding this patient. Last updated 17.[facility] Social History Tobacco Use Types Packs/Day Years Used Date Smoking Tobacco: Never Assessed Sex and Gender Information Value Date Recorded Sex Assigned at Not on file Gender Identity Not on file Sexual Orientation Not on file Procedures * DERMATOPATHOLOGY(Performed 01/23/2023) * DERMATOPATHOLOGY(Performed 12/17/2022) Results * DERMATOPATHOLOGY (01/23/2023 12:00 AM CDT) Only the most recent of2 resultswithin the time period is included. Case Report Dermatopathology Report ? Case: [id number] ? Authorizing Provider: ??Tod Razo MD ?Collected: ? 01/23/2023 12:00 AM ? Ordering Location: ? [facility] ? Received: ?01/24/2023 08:17 AM ? Pathologist: ? Samira Crane MD ? Specimens: ?? A) - Skin, left buttock ? B) - Skin, right upper arm ? 3 2:16 PM CDT DERMATOPATHOLOGY LABORATORY Final Diagnosis Specimen A. 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 MM. Path# [id number]. B: MM in Situ. Path# [id number]. Check Margins. 3 2:16 PM CDT DERMATOPATHOLOGY LABORATORY Gross Description Specimen A: Received is one formalin filled container labeled with the patient's name and designated left buttock. The specimen consists of a shave biopsy measuring 8x6x1 mm. Jar 0. Specimen B: Received is one formalin filled container labeled with the patient's name and designated right upper arm. The specimen consists of a non-oriented ellipse of skin measuring 82u68m0 mm. The epidermal surface is unremarkable. The margin is inked green. The 12 o'clock and 6 o'clock tips are submitted in cassette 1. The remainder of the ellipse is serially sectioned and submitted in cassette 2-3. Jar 0. 3 2:16 PM T DERMATOPATHOLOGY LABORATORY Microscopic Description Specimen A. SKIN, left buttock: This is a compound nevus. There is melanin pigment in the stratum corneum. There is a lentiginous proliferation of melanocytes between nevus nests of cells along the dermal epidermal junction. There is underlying fibroplasia of the papillary dermis. The intradermal component is bland in appearance and matures with depth. (Compound Gianfranco's Nevus) Inflammatory cells are present within the nevus. Specimen B. SKIN, right upper arm: There are fibroblasts and collagen bundles oriented parallel to the skin surface. There are elongated blood vessels, some of which are oriented perpendicular to the skin surface. No residual melanoma is identified. 2:16 PM T DERMATOPATHOLOGY LABORATORY Disclaimer An external and internal positive and negative controls are appropriate for the histochemical, immunohistochemical and immunofluorescence stain(s) in this case (if any), except where stated explicitly. The performance characteristics of the stain(s) cited in this report were developed and its performance characteristic determined by the Dermatopathology Laboratory at [facility], directed by Dr. Eduardo Cohen. These tests need not be, and therefore are not, approved by the [place] Food and Drug Administration. The tests are used for clinical purposes. Billing Codes Specimen Charges Stain Charges 41248 55358 1 1 3 2:16 PM CDT DERMATOPATHOLOGY LABORATORY Embedded Images 2:16 PM CDT DERMATOPATHOLOGY LABORATORY Pathology/Cytology TISSUE SPECIMEN FROM SKIN / Unknown 01/23/2023 01/24/2023 8:17 AM CDT Miscellaneous samples (specimen) TISSUE SPECIMEN FROM SKIN / Unknown 01/23/2023 01/24/2023 8:17 AM CDT Tod Razo MD LAB - PATHOLOGY/CYTO LOGY ORDERABLES DERMATOPATHOLOGY LABORATORY [facility] - Department of Dermatology [address], [address] [phone] Care Teams Clutch Specialist Relationship Specialty Start Date End Date Pippa Sampson MD [address] [place] [address] [facility] - General 04/22/19
--- OUTSIDE RECORDS SUMMARY | 2024-04-29 06:14 | XMS_ITS | Encounter Summary ---
Author Organization [facility] Address [address] [place] [address] [address] Team Prov[address] Care Ct Scan Technician Name Role Phone Pippa Sampson MD Primary Care Provider [phone] Encounter Details Date Type Department Care Team (Late st Contact Info) Description 01/24/2023 Lab Requisition [facility] - DermPath Lab [address] [place] [address] Tod Razo MD [address] [place] [address] Social History Tobacco Use Types Packs/Day Years Used Date Smoking Tobacco: Never Assessed Sex and Gender Information Value Date Recorded Sex Assigned at Not on file Gender Identity Not on file Sexual Orientation Not on file documented as of this encounter Plan of Treatment Not on file documented as of this encounter Procedures Procedure Name Priority Date/Time Associated Diagnosis Comments DERMATOPATHOLOGY Routine 01/23/2023 12:0 0 AM CDT documented in this encounter Results * DERMATOPATHOLOGY (01/23/2023 12:00 AM CDT) Case Report Dermatopathology Report ? Case: [id number] ? Authorizing Provider: ??Tod Razo MD ?Collected: [...] MELANOMA NOT IDENTIFIED (L90.5) 3 2:16 PM T DERMATOPATHOLOGY LABORATORY Clinical History A: Nevus vs. MM. Path# [id number]. B: MM in Situ. Path# [id number]. Check Margins. 3 2:16 PM CDT DERMATOPATHOLOGY [...] of a non-oriented ellipse of skin measuring 85p77c5 mm. The epidermal surface is unremarkable. The margin is inked green. The 12 o'clock and 6 o'clock tips are submitted in cassette 1. The remainder of the ellipse is serially sectioned and submitted in cassette 2-3. Jar 0. 2:16 PM CDT DERMATOPATHOLOGY LABORATORY Microscopic Description Specimen A. SKIN, [...] No residual melanoma is identified. 2:16 PM CDT DERMATOPATHOLOGY LABORATORY Disclaimer An external and internal positive and negative controls are appropriate for the histochemical, immunohistochemical and immunofluorescence stain(s) in this case (if any), except where stated explicitly. The performance characteristics of the stain(s) cited in this report were developed and its performance characteristic determined by the Dermatopathology Laboratory at [facility], directed by Dr. Eduardo Cohen. These tests need not be, and therefore are not, approved by the [place] Food and Drug Administration. The tests are used for clinical purposes. Billing Codes Specimen Charges Stain Charges 23413 36311 1 1 2:16 PM CDT DERMATOPATHOLOGY LABORATORY Embedded Images 2:16 PM CDT DERMATOPATHOLOGY LABORATORY Pathology/Cytology TISSUE SPECIMEN FROM SKIN / Unknown 01/23/2023 01/24/2023 8:17 AM CDT Miscellaneous samples (specimen) TISSUE SPECIMEN FROM SKIN / Unknown 01/23/2023 01/24/2023 8:17 AM CDT Tod Razo MD LAB - PATHOLOGY/CYTO LOGY ORDERABLES DERMATOPATHOLOGY LABORATORY [facility] - Department of Dermatology [address], [address] [phone] documented in this encounter Visit Diagnoses Not on filedocumented in this encounter Care Teams Ct Scan Technician Relationship Specialty Start Date End Date Pippa Sampson MD [address] [place] [address] PCP - General 04/22/19 documented as of this encounter
--- OUTSIDE RECORDS SUMMARY | 2024-04-29 06:14 | XMS_ITS | Encounter Summary ---
Author Organization [facility] Address [address] [place] [address]. [place], [place] [address] [place], [place] [address] Care Team Providers Care Manufacturing Engineer Machining Name Role Phone Carmen Chaudhari [facility] Primary Care Provider + Morenita Shipman APRN Primary Care Provider [phone]- [phone] Encounter Details Date Type Department Care Team (Late st Contact Info) Description 04/17/2022 [employer] Message Enc [facility] Family & Internal Medicine [address] [address] Carmen [facility]audhari [facility] [address] [place] [phone] Microgestin for Merna Pizarro Social History Tobacco Use Types Packs/Day Years [...] on file Legal Sex Female 9:56 AM SONOGRAPHY TECHNOLOGIST Gender Identity Not on file Sexual Orientation Not on file COVID-19 Exposure Response Date Recorded In the last 10 days, have yo u been in contact with someone who was confirmed or suspected to have Coronavirus/COVID-19? No / Unsure 04/11/2022 12:58 PM SONOGRAPHY TECHNOLOGIST documented as of this encounter Progress Notes * SARAH Palacios - 04/24/2022 2:45 PM CST Please see my chart message on Merna's chart. GRAPHY TECHNOLOGIST documented in this encounter Plan of Treatment Upcoming Encounters Date Type Department Care Team (Late st Contact Info) Description 05/10/2024 7:40 AM SONOGRAPHY TECHNOLOGIST Office Visit [facility] Family & Internal Medicine [facility] [address] [place] [address] Morenita Shipman APRN [address] [phone] documented as of this encounter Visit Diagnoses Not on filedocumented in this encounter Additional Health Concerns Infection Onset Date Last Indicated Resolved Time COVID-19 Rule Out 06/28/2022 06/28/2022 06/28/2022 8:23 AM CDT Assessment Noted Time PHQ-9 Depression Total Score: 4 11/09/19 22 7:19 AM CDT documented as of this encounter Care Teams Manufacturing Engineer Machining Relationship Specialty Start Date End Date Carmen Chaudhari FNP-BC PCP - General Nurse Practitioner Family 03/08/21 Morenita Shipman APRN [address] [facility] [address] [place] [address] PCP - General NURSE PRACTITIONER 03/05/23 documented as of this encounter
--- OUTSIDE RECORDS SUMMARY | 2024-04-29 06:14 | XMS_ITS | Encounter Summary ---
Author Organization [facility] Address [address] [place] [address] Care Team Providers Care Director Wholesale Name Role Phone Pippa Sampson MD Primary Care Provider [phone] [phone] Encounter Details Date Type Department Care Team (Late st Contact Info) Description 12/18/2022 Lab Requisition [facility] - [facility] [address] [place] [address] Tod Razo MD [address] [address] Social History Tobacco Use Types Packs/Day Years Used Date Smoking Tobacco: Never Assessed Sex and Gender Information Value Date Recorded Sex Assigned at Not on file Gender Identity Not on file Sexual Orientation Not on file documented as of this encounter Plan of Treatment Not on file documented as of this encounter Procedures Procedure Name Priority Date/Time Associated Diagnosis Comments DERMATOPATHOLOGY Routine 12/17/2022 12:0 0 AM CDT documented in this encounter Results * DERMATOPATHOLOGY (12/17/2022 12:00 AM CDT) Case Report Dermatopathology Report ? Case: [id number] ? Authorizing Provider: ??Tod Razo MD ?Collected: ? 12/17/2022 12:00 AM ? Ordering Location: ? [facility] ? Received: ?12/19/2022 06:51 AM ? Pathologist: ? Sarah Beth Patten MD ? Specimen: ?Skin, right upper arm ? 3 3:37 PM T DERMATOPATHOLOGY LABORATORY Final Diagnosis Specimen A. 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 The specimen consists of a shave biopsy measuring 8x7x1 mm. Jar 0. 3 3:37 PM [facility] DERMATOPATHOLOGY LABORATORY Microscopic Description Specimen A. SKIN, right upper arm: There is a proliferation of melanocytes distributed in an irregular pattern, singly and in nests, at all levels of the epidermis. Lesional cells are highlighted by SOX-10 immunostain. MART-1/Melan-A highlights the pagetoid spread. P16 shows partial loss in lesional cells. This lesion is present at the margin of the specimen. Additional deeper sections were obtained and reviewed. This case was also reviewed by Dr. Uma Salinas who agrees. 3 3:37 PM T DERMATOPATHOLOGY LABORATORY Disclaimer An external and internal positive and negative controls are appropriate for the histochemical, immunohistochemical and immunofluorescence stain(s) in this case (if any), except where stated explicitly. The performance characteristics of the stain(s) cited in this report were developed and its performance characteristic determined by the Dermatopathology Laboratory at [facility], directed by Dr. Eduardo Cohen. These tests need not be, and therefore are not, approved by the [place] Food and Drug Administration. The tests are used for clinical purposes. Billing Codes Specimen Charges Stain Charges 60501 1 52945 60398 73854 1 1 1 3 3:37 PM CDT DERMATOPATHOLOGY LABORATORY Embedded Images 3 3:37 PM CDT DERMATOPATHOLOGY LABORATORY Pathology/Cytolog y TISSUE SPECIMEN FROM SKIN / Unknown 12/17/2022 12/19/2022 6:51 AM CDT Tod Razo MD LAB - PATHOLOGY/CYTO LOGY ORDERABLES DERMATOPATHOLOGY LABORATORY [facility] - Department of Dermatology [facility] Medicine [address] [place] [address], [address] [phone] documented in this encounter Visit Diagnoses Not on filedocumented in this encounter Care Teams Director Wholesale Relationship Specialty Start Date End Date Pippa Sampson MD [address] [place] [address] PCP - General 04/22/19 documented as of this encounter
--- OUTSIDE RECORDS SUMMARY | 2024-04-29 06:15 | XMS_ITS | Encounter Summary ---
Author Organization [facility] Address [address] [place] [address]. [place], [place] [address] [place] [address] Care Team Providers Care Slitter And Cutter Operator Name Role Phone Camren Chaudhari [facility] Primary Care Provider + Morenita Shipman APRN Primary Care Provider [phone]- [phone] Encounter Details Date Type Department Care Team (Late Contact Info) Description 09/24/2021 [employer] Message Enc [facility] Family & Internal Medicine [facility] [phone] [place] [address] Carmen Chaudhari [facility] [address] [place] [phone] COVID PCR Test Social History Tobacco Use Types Packs/Day Years Used Date Smoking Tobacco: Never Smokeless Tobacco: Never Comments:non smoker Alcohol Use Standard Drinks/Week Comments Yes 0 (1 standard drink = 0.6 oz pur e alcohol) occ PHQ-2 Answer Date Recorded PHQ-2 Score - If the patient scores above 3, please move on to questions 3-9 0 07/05/2021 Comments No Sex and Gender Information Value Date Recorded Sex Assigned at Not on file Legal Sex Female 9:56 AM NUCLEAR MEDICINE CHIEF TECHNOLOGIST Gender Identity Not on file Sexual Orientation Not on file documented as of this encounter Plan of Treatment Upcoming Encounters Date Type Department Care Team (Late Contact Info) Description 05/10/2024 7:40 AM NUCLEAR MEDICINE CHIEF TECHNOLOGIST Office Visit [facility] Family & Internal Medicine [facility] [address] [place] [address] Morenita Shipman APRN [address] [place] [address] documented as of this encounter Visit Diagnoses Not on filedocumented in this encounter Additional Health Concerns Infection Onset Date Last Indicated Resolved Time COVID-19 Rule Out 03/19/2022 03/19/2022 03/19/2022 9:53 AM NUCLEAR MEDICINE CHIEF TECHNOLOGIST COVID-19 Rule Out 03/19/2022 03/19/2022 03/20/2022 8:01 PM NUCLEAR MEDICINE CHIEF TECHNOLOGIST COVID-19 Rule Out 06/28/2022 06/28/2022 06/28/2022 8:23 AM CDT Assessment Noted Time PHQ-9 Depression Total Score: 0 07/06/19 22 2:35 PM CDT documented as of this encounter Care Teams Slitter And Cutter Operator Relationship Specialty Start Date End Date [facility] PCP - General Nurse Practitioner Family 03/08/21 Morenita Shipman APRN [address] [place] [address] PCP - General NURSE PRACTITIONER 03/05/23 documented as of this encounter
== END 2024-04-23 10:00 | disposition home or self-care (01) ==
LOC: ANHIMG 10:01
PROVIDERS: PCP Registered Nurse; Visit Provider Registered Nurse
DX: Z12.31 Encounter for screening mammogram for malignant neoplasm of breast (principal)
CPT/HCPCS: 77063; 77067